=== PATIENT | female | born 1995 | race American Indian/Alaskan Native ===

== ENCOUNTER 2017-09-24 19:39 | Emergency (ER) | payer SELFPAY ==
[2017-09-24 19:47] VITALS: BP 145/99
[2017-09-24 20:25] LABS: Bilirubin,Urine NEG (Negative); Blood,Urine NEG (Negative); Color,Urine Yellow (Yellow); Mucus,Urine 2+ /HPF; Protein,Urine <15 mg/dL mg/dL (Negative)
[2017-09-24 20:42] LABS: HCG Qualitative,Urine Negative (Negative)
[2017-09-24] MEDS ORDERED: MOTRIN PO ONE (23:04)
--- NOTE | 2017-09-24 23:08 | Emergency Department Report ---
ED Back Pain/Injury HPI - General Chief Complaint: Back Pain/Injury Stated Complaint: ABD PAIN, UGARTE, SPOTTING Time Seen by Provider: 09/24/17 23:04 Source: patient Limitations: No Limitations - History of Present Illness Initial Comments: 21-year-old -[place] female comes in complaining of left lower back pain since yesterday. She also complains of headache onset yesterday. Located on the left temporal area. She reports she took Goody powder yesterday with no relief. Patient reports that she started spotting yesterday. States is a small amount of light red blood. States. He is 2 weeks late. No home test taken. She denies any fever no chills no nausea no vomiting denies any dysuria, chest pain, sore throat. Patient reports she has no past medical history currently takes no medications has no known drug allergies and has no primary care provider. MD Complaint: back pain - Related Data Previous Rx's Medication Instructions Recorded Last Taken Type Ibuprofen [Motrin 800 MG tab] 800 mg PO Q8H PRN #30 tablet 09/25/17 Unknown Rx Nitrofurantoin Monohyd/M-Cryst 100 mg PO BID #14 capsule 09/25/17 Unknown Rx [Macrobid 100 mg Capsule] Allergies Allergy/AdvReac Type Severity Reaction Status Date / Time No Known Allergies Allergy Unverified 09/24/17 19:42 ED Review of Systems ROS: Stated complaint: ABD PAIN, UGARTE, SPOTTING Other details as noted in HPI Constitutional: denies: chills, fever Eyes: denies: eye pain, eye discharge, vision change ENT: denies: ear pain, throat pain Respiratory: denies: cough, shortness of breath, wheezing Cardiovascular: denies: chest pain, palpitations Endocrine: no symptoms reported Gastrointestinal: denies: abdominal pain, nausea, diarrhea Genitourinary: denies: urgency, dysuria, discharge Musculoskeletal: back pain (left side) Skin: denies: rash, lesions Neurological: headache Psychiatric: denies: anxiety, depression Hematological/Lymphatic: denies: easy bleeding, easy bruising ED Past Medical Hx - Past Medical History Previous Medical History?: No - Surgical History Past Surgical History?: No - Social History Smoking Status: Never Smoker Substance Use Type: None - Medications Home Medications: Home Medications Medication Instructions Recorded Confirmed Last Taken Type Ibuprofen [Motrin 800 MG tab] 800 mg PO Q8H PRN #30 tablet 09/25/17 Unknown Rx Nitrofurantoin Monohyd/M-Cryst 100 mg PO BID #14 capsule 09/25/17 Unknown Rx [Macrobid 100 mg Capsule] ED Physical Exam - General Limitations: No Limitations General appearance: alert, in no apparent distress - Head Head exam: Present: atraumatic, normocephalic - Eye Eye exam: Present: normal appearance - ENT ENT exam: Present: mucous membranes moist - Neck Neck exam: Present: normal inspection - Respiratory Respiratory exam: Present: normal lung sounds bilaterally. Absent: respiratory distress - Cardiovascular Cardiovascular Exam: Present: regular rate, normal rhythm. Absent: systolic murmur, diastolic murmur, rubs, gallop - GI/Abdominal GI/Abdominal exam: Present: soft, normal bowel sounds - Extremities Exam Extremities exam: Present: normal inspection - Back Exam Back exam: Present: CVA tenderness (L) - Neurological Exam Neurological exam: Present: alert, oriented X3 - Psychiatric Psychiatric exam: Present: normal affect, normal mood - Skin Skin exam: Present: warm, dry, intact, normal color. Absent: rash ED Course Vital Signs 09/24/17 19:43 Temperature 99.5 F Pulse Rate 108 H Respiratory 18 Rate Blood Pressure 145/99 O2 Sat by Pulse 96 Oximetry ED Medical Decision Making - Radiology Data Normal examination abdomen - Medical Decision Making Patient has been evaluated by this provider fast track. Urinalysis was completed shows just a trace leukocyte esterase, hCG negative. I've ordered a KUB and ibuprofen 800. Once results are back I will be able to formulate a diagnosis. KUB U shows normal examination. I will treat patient for urinary tract infection and have her follow up with the primary care provider patient verbalized understanding Critical care attestation.: If time is entered above; I have spent that time in minutes in the direct care of this critically ill patient, excluding procedure time. ED Disposition Clinical Impression: UTI (urinary tract infection) Qualifiers: Urinary tract infection type: site unspecified Hematuria presence: without hematuria Qualified Code(s): N39.0 - Urinary tract infection, site not specified Disposition: TO HOME OR SELFCARE Is pt being admited?: No Does the pt Need Aspirin: No Condition: Stable Instructions: Urinary Tract Infection in Women (ED) Additional Instructions: Complete antibiotics as prescribed. Take ibuprofen for pain. Follow-up with a primary care provider if symptoms persist or gets worse. Prescriptions: Ibuprofen [Motrin 800 MG tab] 800 mg PO Q8H PRN #30 tablet PRN Reason: Pain Nitrofurantoin Monohyd/M-Cryst [Macrobid 100 mg Capsule] 100 mg PO BID #14 capsule Referrals: PRIMARY CARE, [Primary Care Provider] - 3-5 Days [facility] [Provider Group] - 3-5 Days Forms: Work/School Release Form(ED)
--- NOTE | 2017-09-24 23:58 | XRay Report ---
FINAL REPORT PROCEDURE: XR ABDOMEN 1V AP TECHNIQUE: Abdominal radiograph, single supine AP view. HISTORY: CVA tenderness to the left kidney COMPARISON: No prior studies are available for comparison. FINDINGS: Bowel gas pattern:Nonobstructive. Masses or calcifications:None. Bony structures:No significant abnormality. Other:None. IMPRESSION: No acute abnormality
== END 2017-09-25 00:17 | disposition home or self-care (01) ==
LOC: ED 19:39
DX: N39.0 Urinary tract infection, site not specified (principal); R51 Headache; N93.9 Abnormal uterine and vaginal bleeding, unspecified
CPT/HCPCS: 74018; 81001; 81025; 87086; 99284

== ENCOUNTER 2019-01-19 11:43 | Emergency (ER) | payer OTHER ==
[2019-01-19 11:50] VITALS: BP 145/90
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
== END 2019-01-19 12:22 | disposition home or self-care (01) ==
LOC: ED 11:43
DX: S16.1XXA Strain of muscle, fascia and tendon at neck level, initial encounter (principal); S39.012A Strain of muscle, fascia and tendon of lower back, initial encounter; Z79.899 Other long term (current) drug therapy; V89.2XXA Person injured in unspecified motor-vehicle accident, traffic, initial encounter; Y93.89 Activity, other specified; Y92.488 Other paved roadways as the place of occurrence of the external cause; Y99.8 Other external cause status
CPT/HCPCS: 99282